=== PATIENT | male | born 1945 | race Caucasian/White ===

== ENCOUNTER → 2019-04-09 14:30 | Outpatient (CLI) | payer OTHER, SELFPAY ==
--- NOTE | 2019-04-09 | DI.ECHO.S_ITS ---
[facility] +---------+ : : [address] [place] : : : : [id number] : : : : Phone: [phone]+ Echocardiogram Report + + :Name: LEONIE OSORIO Study Date: 04/09/2019 Height: 70 in : :[facility] Weight: 150 lb : : Gender: Male BSA: 1.8 m2 : :: 1945 Age: 73 yrs BP: 102/66 mmHg: :Reason For Study: Atrial fibrillation : : Performed By: Rhona Hernandez : :Referring: NENO ROTHMAN : + + Interpretation Summary The patient was in atrial fibrillation with heart rates between 148-169 bpm during the exam. Normal left ventricle size with ejection fraction 10-15%. Severe global hypokinesis of the left ventricle. Moderate to severely dilated right ventricle with moderately reduced right ventricular systolic function. Severe biatrial enlargement. Severe aortic stenosis. Severity ratio is 0.22. Moderate to severe mitral regurgitation. Moderate tricuspid regurgitation. The right ventricular systolic pressure is estimated to be at least 45 mmHg based on an estimated right atrial pressure of 15 mm Hg. The ascending aorta is mild-moderately enlarged. Procedure: A two-dimensional transthoracic echocardiogram with color flow and Doppler was performed. The study quality was technically good. There is no prior echocardiogram noted for this patient. The patient was in atrial fibrillation with heart rates between 148-169 bpm during the exam. Left Ventricle: The left ventricle is normal in size. There is normal left ventricular wall thickness. The ejection fraction is estimated to be 10-15%. There is severe global hypokinesis of the left ventricle. Diastolic function could not be accurately assessed due to atrial fibrillation. Right Ventricle: The right ventricle is moderate to severely dilated. Right ventricular systolic function is moderately reduced. Atria: There is severe biatrial enlargement. A patent foramen ovale is present. Mitral Valve: The mitral valve leaflets appear moderately thickened, but open well. There is moderate to severe mitral regurgitation. Aortic Valve: There is severe aortic stenosis. The calculated aortic valve area is 0.7 cm2. The peak aortic velocity is 2.0 m/sec. The aortic valve mean gradient is 9 mmHg. Severity ratio is 0.22. There is trace aortic regurgitation. Tricuspid Valve: The tricuspid valve leaflets are thin and pliable. There is moderate tricuspid regurgitation. The right ventricular systolic pressure is estimated to be at least 45 mmHg based on an estimated right atrial pressure of 15 mm Hg. Pulmonic Valve: The pulmonic valve is not well seen, but is grossly normal. There is no pulmonic valvular regurgitation. Great Vessels: The aortic root is normal size. The ascending aorta is mild- moderately enlarged. The aortic arch is normal in size. The IVC is dilated (diameter is greater than 2.1 cm) and it collapses less than 50% with a sniff. This suggests a high right atrial pressure of 15 mm Hg. Pericardium/ Pleura There is no pericardial effusion. There is a small left- sided pleural effusion. MMode/2D Measurements & Calculations LVIDd: 5.5 cm LVOT diam: 2.0 cm LVIDs: 5.5 cm Ao root diam: 3.0 cm FS: -0.73 % Aortic Jxn: 2.9 cm EPSS: 2.1 cm asc Aorta Diam: 4.1 cm IVSd: 1.3 cm Ao Arch Diam (Prox Trans): 3.0 cm LVPWd: 1.2 cm LV thurston. diameter/BSA (cm/m^2): 3.0 LV sys. diameter/BSA (cm/m^2): 3.0 LA dimension: 4.5 cm RA long axis: 6.3 cm LA A2 area: 27.7 cm2 RA area: 35.0 cm2 LA A4 area: 25.8 cm2 RA vol: 165.7 ml LA length (vol): 6.0 cm RA : 89.7 ml/m2 LA vol: 100.3 ml IVC diam: 2.3 cm LA vol index: 54.3 ml/m2 RVDd major: 8.5 cm RVD1 (basal): 4.0 cm RVD2 (mid): 3.0 cm NENA (plan): 0.33 cm2 Doppler Measurements & Calculations Ao V2 max: 203.2 cm/sec LVOT Max Abdirahman: 41.0 cm/sec Ao V2 mean: 139.7 cm/sec LV V1 max P.67 mmHg Ao max P.5 mmHg LV V1 VTI: 5.7 cm Ao mean P.9 mmHg NENA(I,D): 0.72 cm2 Ao V2 VTI: 25.6 cm NENA(V,D): 0.65 cm2 sev ratio: 0.22 NENA indexed to BSA (cm^2/m^2): 0.39 MVA(VTI): 1.4 cm2 TR max abdirahman: 275.4 cm/sec MR ERO: 0.21 cm2 TR max P.3 mmHg PA V2 max: 59.0 cm/sec PA V2 mean: 35.4 cm/sec PA mean P.61 mmHg PA Accel Time: 0.08 sec MV V2 mean: 61.1 cm/sec MR flow rate: 91.3 cm3/sec MV mean P.2 mmHg MR PISA radius: 0.61 cm MV V2 VTI: 13.6 cm SV(LVOT): 18.4 ml Electronically signed by: Ese Zavala on Reading Physician:04/09/2019 04:38 PM
== END ==
PROVIDERS: PCP Physician Assistant Medical; Visit Provider Physician Assistant Medical
DX: I08.3 Combined rheumatic disorders of mitral, aortic and tricuspid valves (principal); I48.91 Unspecified atrial fibrillation; I77.89 Other specified disorders of arteries and arterioles
CPT/HCPCS: 93306

== ENCOUNTER 2019-04-14 10:36 | Emergency (ER) | payer OTHER, SELFPAY ==
[2019-04-14] VITALS (25 sets, daily range): BP systolic 81–119; BP diastolic 40–91; PULSE 71–199; RESP 18–33; TEMP 36.2; O2SAT 91–96; BMI 21.5
--- NOTE | 2019-04-14 10:59 | DI.RAD.S_ITS ---
PROCEDURE: XR CHEST 1V INDICATIONS: SOB TECHNIQUE: One view of the chest was acquired. COMPARISON: None. FINDINGS: Surgical changes and devices: None. Lungs and pleura: Mild interstitial pulmonary edema. Probable bibasilar atelectasis and left pleural fluid. No pleural effusions or pneumothorax. Mediastinum: Mediastinal contours appear normal. Question cardiomegaly. Bones and chest wall: No suspicious bony lesions. Overlying soft tissues appear unremarkable. IMPRESSION: 1. Findings are consistent with congestive heart failure. Mild pulmonary edema. Probable bibasilar atelectasis and left pleural fluid. Dictated by: Josh Tanner M.D. on 04/14/2019 at 13:52 Approved by: Josh Tanner M.D. on 04/14/2019 at 13:54
--- NOTE | 2019-04-14 11:08 | ED.SOB ---
HPI - SOB/Dyspnea General Chief Complaint: Shortness of Breath/Dyspnea Stated Complaint: afib/chf/fluid accum. in both legs Time Seen by Provider: 04/14/19 10:38 Source: patient and family Mode of arrival: Wheelchair Limitations: no limitations History of Present Illness HPI Narrative: 73-year-old male former smoker with newly discovered atrial fibrillation presents with gradually worsening shortness of breath over the past week. He now has significant shortness of breath with any exertion as well as lying flat. He admits to noted swelling in both of his lower extremities. He states that he has been in AFib since March 23. He has had 16 days of Pradaxa. He had Echo on Friday which noted EF 10-15% with severe global hypokinesis of LV. MD Complaint: shortness of breath Onset (ago): hour(s) Severity: moderate Consistency/Duration: constant Relieving factors: oxygen and rest Exacerbating factors: lying flat and exertion Known history of: COPD Treatment prior to arrival: none Related Data Home oxygen amount: none Home Medications Medication Instructions Recorded Confirmed citalopram 10 mg PO DAILY 04/14/19 04/14/19 clopidogrel 75 mg PO DAILY 04/14/19 04/14/19 dabigatran etexilate [Pradaxa] 110 mg PO BID 04/14/19 04/14/19 diltiazem HCl 300 mg PO DAILY 04/14/19 04/14/19 furosemide 20 mg PO DAILY 04/14/19 04/14/19 potassium chloride 10 meq PO DAILY 04/14/19 04/14/19 triazolam 0.25 mg PO BEDTIME 04/14/19 04/14/19 Allergies Allergy/AdvReac Type Severity Reaction Status Date / Time No Known Drug Allergies Allergy Verified 04/14/19 10:51 Review of Systems Constitutional Constitutional: Denies chills, Denies fatigue, Denies fever(s), Denies frequent falls, Denies lethargy and Denies weakness Eyes Eyes: Denies change in vision, Denies eye discharge, Denies irritation and Denies loss of vision ENT Ears, Nose, Mouth, and Throat: Denies change in voice, Denies dizziness, Denies neck pain, Denies sore throat and Denies throat swelling Cardiovascular Cardiovascular: Denies chest pain, Reports rapid heart rate, Denies irregular heart rhythm, Reports leg edema, Denies lightheadedness, Denies palpitations, Denies dyspnea, Reports dyspnea on exertion and Reports orthopnea Respiratory Respiratory: Denies cough, Denies dyspnea, Reports dyspnea on exertion and Denies wheezing Gastrointestinal Gastrointestinal: Denies abdominal pain, Denies change in bowel habits, Denies diarrhea, Denies nausea and Denies vomiting Genitourinary Genitourinary: Denies hematuria, Denies flank pain, Denies urinary incontinence and Denies urinary urgency Musculoskeletal Musculoskeletal: Denies back pain, Denies muscle weakness, Denies neck pain, Denies numbness and Denies tingling Integumentary/Breasts Skin/Breast: Denies pruritus, Denies erythema, Denies rash and Denies wounds Neurologic Neurologic: Denies behavioral changes, Denies confusion, Denies dizziness, Denies frequent falls, Denies loss of vision, Denies numbness, Denies tingling and Denies weakness Psychiatric Psychiatric: Denies anxiety, Denies behavioral changes, Denies confusion, Denies depression, Denies homicidal ideation and Denies suicidal ideation Endocrine Endocrine: Denies fatigue, Denies flushing and Denies palpitations Hematologic/Lymphatic Hematologic/Lymphatic: Denies easy bruising Allergic/Immunologic Allergic/Immunologic: Denies urticaria, Denies throat swelling and Denies wheezing Patient History Medical History (Updated 04/14/19 @ 17:23 by Antoine Wall DO) Atrial fibrillation (Acute) COPD (chronic obstructive pulmonary disease) (Acute) Prostate hypertrophy (Acute) tobacco type: cigarettes Exam Narrative Exam Narrative: GENERAL: [73] year old patient appears older than stated age. Appears unwell and chronically ill HEAD: Temporal wasting Atraumatic. Normocephalic. EYES: Pupils equal round and reactive. Extraocular motions intact. No scleral icterus. No injection or drainage. ENT: Nose without bleeding, purulent drainage. Throat without erythema, tonsillar hypertrophy or exudate. Airway patent. NECK: Trachea midline. Non tender CARDIOVASCULAR: Tachycardic and irregular RESPIRATORY: Decreased breath sounds with prolonged expiratory phase, crackles in the bilateral bases GASTROINTESTINAL: Abdomen soft, non-tender, nondistended. EXTREMITIES: 2+ pitting edema bilateral lower extremities BACK: Nontender without deformity or crepitance. No flank tenderness. NEURO: AOx3. SKIN: No rash or erythema of visible areas Initial Vital Signs Initial Vital Signs: Vital Signs Temperature 97.1 F L 04/14/19 10:51 Pulse Rate 126 H 04/14/19 10:51 Respiratory Rate 23 04/14/19 10:51 Blood Pressure 111/89 04/14/19 10:51 Pulse Oximetry 95 04/14/19 10:51 Course Orders Ordered: ED Orders 04/14/19 10:53 EKG-12 Lead Stat 04/14/19 10:58 Consult to Respiratory Therapy Evaluate & Treat 04/14/19 10:59 XR chest 1V Stat 04/14/19 11:20 B Type Natriuretic Peptide Stat Complete Blood Count AUTO DIFF Stat Procalcitonin Stat 04/14/19 12:05 Basic Metabolic Panel Stat Magnesium Stat Troponin & CK Cardiac Panel Stat Discontinued Medications Digoxin (Lanoxin) 250 mcg IV NOW ONE Stop: 04/14/19 16:07 Last Admin: 04/14/19 16:50 Dose: 250 mcg Documented by: HUAN Diltiazem HCl (Cardizem) 10 mg IV NOW ONE Stop: 04/14/19 10:59 Last Admin: 04/14/19 11:26 Dose: 10 mg Documented by: HUAN DILTIAZEM (Diltiazem 125 Mg/125 Ml-D5w) 125 mg in 125 mls @ 5 mls/hr IV TITRATE ELIZABETH; Protocol Last Titration: 04/14/19 16:52 Dose: 0 mg/hr, 0 mls/hr Documented by: Titration: 04/14/19 12:15 Dose: 7.5 mg/hr, 7.5 mls/hr Documented by: Admin: 04/14/19 11:27 Dose: 5 mg/hr, 5 mls/hr Documented by: HUAN Esmolol HCl (Brevibloc) 2.5 gm in 250 mls @ 20.412 mls/hr IV TITRATE ELIZABETH; Protocol Last Titration: 04/14/19 17:17 Dose: 25 mcg/kg/min, 10.206 mls/hr Documented by: Admin: 04/14/19 16:51 Dose: 50 mcg/kg/min, 20.412 mls/hr Documented by: HUAN Reevaluation(s) Reevaluation #1: Patient shows tremendous improvement after diltiazem. Heart rate drops into the 110s blood pressure from the 90s up into the 110s. Echo is discovered and notes EF of 10%, rate control switched to esmolol drip Consultations Consultation #1: Initial discussion [facility] whom searches for placement but they have no available beds, they suggest we search for placement and give us an IP number for the patient. [id number] Consultation #2: call to cardiology, recommends Esmolol and Digoxin Consultation #3: hospitalist at [facility] is happy to accept Vital Signs Vital signs: Vital Signs - 8 hr 04/14/19 11:10 04/14/19 11:25 04/14/19 11:26 Pulse Rate 92 H 130 H 130 H Respiratory Rate 26 H 33 H Blood Pressure 110/90 Blood Pressure [Left Arm] 106/84 Blood Pressure [Right Arm] 110/90 Pulse Oximetry 94 93 04/14/19 11:30 04/14/19 11:39 04/14/19 11:50 Pulse Rate 128 H 123 H 121 H Respiratory Rate 25 H 28 H 25 H Blood Pressure Blood Pressure [Left Arm] 110/90 102/80 Blood Pressure [Right Arm] Pulse Oximetry 91 95 96 04/14/19 12:00 04/14/19 12:15 04/14/19 12:30 Pulse Rate 118 H 114 H 123 H Respiratory Rate 28 H 25 H 27 H Blood Pressure Blood Pressure [Left Arm] 99/74 104/90 97/73 Blood Pressure [Right Arm] Pulse Oximetry 95 95 96 04/14/19 12:40 04/14/19 12:50 04/14/19 13:00 Pulse Rate 118 H 119 H 117 H Respiratory Rate 23 23 25 H Blood Pressure Blood Pressure [Left Arm] 109/91 H 97/76 91/71 Blood Pressure [Right Arm] Pulse Oximetry 95 95 95 04/14/19 13:30 04/14/19 14:00 04/14/19 14:20 Pulse Rate 71 199 H 122 H Respiratory Rate 18 24 26 H Blood Pressure Blood Pressure [Left Arm] Blood Pressure [Right Arm] 111/84 104/88 101/75 Pulse Oximetry 95 95 96 04/14/19 15:00 04/14/19 15:30 04/14/19 16:00 Pulse Rate 121 H 123 H 122 H Respiratory Rate 26 H 26 H 26 H Blood Pressure Blood Pressure [Left Arm] Blood Pressure [Right Arm] 104/80 109/84 116/88 Pulse Oximetry 96 95 96 04/14/19 16:30 04/14/19 16:50 04/14/19 17:00 Pulse Rate 128 H 112 H 132 H Respiratory Rate 23 27 H Blood Pressure 100/40 L Blood Pressure [Left Arm] Blood Pressure [Right Arm] 113/83 119/67 Pulse Oximetry 95 95 04/14/19 17:18 04/14/19 17:20 04/14/19 17:27 Pulse Rate 130 H 130 H 124 H Respiratory Rate 30 H Blood Pressure Blood Pressure [Left Arm] Blood Pressure [Right Arm] 87/58 L 81/48 L 93/77 Pulse Oximetry MDM - SOB/Dyspnea Lab Data Result diagrams: 04/14/19 11:20 04/14/19 12:05 Labs: Lab Results 04/14/19 04/14/19 04/14/19 Range/Units 11:20 11:20 12:05 WBC 12.5 H (4.5-11.0) X10^3/uL RBC 5.25 (4.5-5.9) X10^6/uL Hgb 16.2 (13.5-17.5) g/dL Hct 49.2 (41-53) % MCV 93.7 (80-100) fL MCH 30.9 (26-34) PG MCHC 33.0 (30-36) % RDW 14.1 (11.6-14.8) % Plt Count 230 (150-400) X10^3/uL Neut % (Auto) 80.4 H (50-75) % Lymph % (Auto) 6.5 L (25-40) % Thayer % (Auto) 12.8 (3-14) % Eos % (Auto) 0.0 L (2-4) % Baso % (Auto) 0.3 (0-2) % Neut # (Auto) 23027 H (2771-2667) /uL Lymph # (Auto) 800 L (5590-9402) /uL Thayer # (Auto) 1600 H (0-900) /uL Eos # (Auto) 0 (0-450) /uL Baso # (Auto) 0 (0-100) /uL Sodium 133 L (137-145) mmol/L Potassium 4.8 (3.4-5.1) mmol/L Chloride 95 L (98-107) mmol/L Carbon Dioxide 24 (22-32) mmol/L BUN 58 H (9-20) mg/dL Creatinine 1.40 H (0.66-1.25) mg/dL Estimated GFR 49.7 L (>60) mL/min BUN/Creatinine Ratio 41.4 H (6-22) Glucose 140 H (80-110) mg/dL Calcium 9.5 (8.4-10.2) mg/dL Magnesium 2.3 (1.6-2.3) mg/dL Total Creatine Kinase 45 L (55-170) U/L CK-MB (CK-2) TNP CK-MB (CK-2) Rel Index TNP Troponin I 0.292 H* (0.01-0.034) ng/mL B-Natriuretic Peptide 1780 H (<100) Procalcitonin 0.06 (<0.5) ng/mL Imaging Data Chest x-ray: Radiologist's impression: Be Garcia 73 M 1945 [place] [address] XRay Report Signed Patient: Be Garcia CMR#: [id number] : [id number]:[id number] Age/Sex: 73 / MDate of Service: 04/14/19 Loc: ED Accession Number: [id number] Procedure: XR chest 1V Ordering Provider: Antoine Wall D.O. PROCEDURE: XR CHEST 1V INDICATIONS: SOB TECHNIQUE: One view of the chest was acquired. COMPARISON: None. FINDINGS: Surgical changes and devices: None. Lungs and pleura: Mild interstitial pulmonary edema. Probable bibasilar atelectasis and left pleural fluid. No pleural effusions or pneumothorax. Mediastinum: Mediastinal contours appear normal. Question cardiomegaly. Bones and chest wall: No suspicious bony lesions. Overlying soft tissues appear unremarkable. IMPRESSION: 1. Findings are consistent with congestive heart failure. Mild pulmonary edema. Probable bibasilar atelectasis and left pleural fluid. Dictated by: Josh Tanner M.D. on 04/14/2019 at 13:52 Approved by: Josh Tanner M.D. on 04/14/2019 at 13:54 ECG Data Attestation: I personally reviewed and interpreted this ECG as follows: Interpretation: Rapid AFib in the 140s without ischemic change Critical Care Time Critical Care Time Critical Care Time: Yes Total Critical Care Time: 35 Attestation: The high probability of a clinically significant, sudden or life threatening deterioration of the [CV] system(s) required my full and direct attention, intervention and personal management. The aggregate critical care time was [35] minutes. This time is in addition to time spent performing reported procedures but includes the following: [x] Data Review and interpretation [x] Patient assessment and monitoring of vital signs [x] Documentation [x] Medication orders and management Discharge Plan Departure Patient Disposition: [facility] Clinical Impression: Atrial fibrillation with rapid ventricular response Acute CHF Qualifiers: Heart failure type: unspecified Qualified Code(s): I50.9 - Heart failure, unspecified Discharge Date/Time: 04/14/19 17:33 Prescriptions: No Action triazolam 0.25 mg tablet 0.25 mg PO BEDTIME RF: 0 citalopram 10 mg tablet 10 mg PO DAILY RF: 0 potassium chloride 10 mEq tablet extended release 10 meq PO DAILY RF: 0 diltiazem HCl 300 mg capsule,extended release 24 hr 300 mg PO DAILY RF: 0 clopidogrel 75 mg tablet 75 mg PO DAILY RF: 0 furosemide 20 mg tablet 20 mg PO DAILY RF: 0 Pradaxa 110 mg capsule 110 mg PO BID RF: 0 Referrals: Meghan Fernandez PA-C [Primary Care Provider] -
[2019-04-14] MEDS: dilTIAZem 5 MG/ML SDV 10 MG IV (11:26)
[2019-04-14] MEDS: DILTIAZEM 125 MG/125 ML PIGGYBACK IV (11:27)
[2019-04-14 11:29] LABS: Add Manual Diff / Slide Review NO; Basophils Absolute Auto 0 /uL (0-100); Basophils Percent Auto 0.3 % (0-2); Eosinophils Absolute Auto 0 /uL (0-450); Hematocrit 49.2 % (41-53); Hemoglobin 16.2 g/dL (13.5-17.5); Lymphocytes Absolute Auto 800 /uL (1100-4500); Lymphocytes Percent Auto 6.5 % (25-40); Mean Corpuscular Hemoglobin 30.9 PG (26-34); Mean Corpuscular Volume 93.7 fL (80-100); Monocytes Absolute Auto 1600 /uL (0-900); Monocytes Percent Auto 12.8 % (3-14); Neutrophils Absolute Auto 10100 /uL (1500-7000); Neutrophils Percent Auto 80.4 % (50-75); Platelet Count 230 X10^3/uL (150-400); Red Blood Cell Count 5.25 X10^6/uL (4.5-5.9); Red Cell Distribution Width 14.1 % (11.6-14.8); White Blood Cell Count 12.5 X10^3/uL (4.5-11.0)
[2019-04-14 11:59] LABS: Procalcitonin 0.06 ng/mL (<0.5)
[2019-04-14 12:02] LABS: B Type Natriuretic Peptide 1780 (<100)
[2019-04-14 12:22] LABS: BUN Creatinine Ratio 41.4 (6-22); Blood Urea Nitrogen 58 mg/dL (9-20); Calcium 9.5 mg/dL (8.4-10.2); Carbon Dioxide 24 mmol/L (22-32); Chloride 95 mmol/L (98-107); Creatine Kinase 45 U/L (55-170); Estimated Glomerular Filt Rate 49.7 mL/min (>60); Glucose 140 mg/dL (80-110); HEMOLYSIS < 15 (0-50); Magnesium 2.3 mg/dL (1.6-2.3); Potassium 4.8 mmol/L (3.4-5.1); Sodium 133 mmol/L (137-145)
[2019-04-14 12:59] LABS: Troponin I 0.292 ng/mL (0.01-0.034)
[2019-04-14] MEDS: DIGOXIN 500 MCG/2 ML AMPUL 250 MCG IV (16:50)
[2019-04-14] MEDS: ESMOLOL 2.5 GM/250 ML IV.SOLN IV (16:51)
--- NOTE | 2019-04-14 17:27 | PC.NURSE ---
Report to Dk Treviño RN @ [facility] Critical Care completed. Updated report called as NWA left w/ pt. Due to hypotension, esmolol 1/2 to 25mcg/kg, 10.2 ml / hour. Dr. Wall states to hold if pressure falls and pt does not tolerate. Report to NWA at bedside. Pt denies pain.
== END 2019-04-14 17:33 | disposition short-term general hospital (02) ==
PROVIDERS: Emergency Provider Emergency Medicine; PCP Physician Assistant Medical
DX: I48.20 Chronic atrial fibrillation, unspecified (principal); I50.9 Heart failure, unspecified
CPT/HCPCS: 36415; 71045; 80048; 82550; 83735; 83880; 84145; 84484; 85025; 93005; 96365; 96366; 96367; 96375; 99285; 99291; J1160